=== PATIENT | female | born 1930 | race Caucasian/White ===

== ENCOUNTER 2017-01-13 10:27 | Outpatient (CLI) | payer OTHER ==
--- NOTE | 2017-01-13 12:33 | DIAGNOSTIC IMAGING REPORT ---
PROCEDURE: MR LUMBAR SPINE W/O CONTRAST INDICATION: LT LEG RADICULOPATHY TECHNIQUE: Noncontrast T1, T2, and STIR sagittal images. T1 and T2 axial images. COMPARISON: Lumbar spine MRI 02/05/2016. FINDINGS: Motion artifacts secondary to back pain. Normal alignment without fracture. Multiple Schmorl's nodes of throughout the lumbar spine. Moderate L3-4 and severe L5-S1 disc space narrowing. Multilevel disc degeneration. Normal conus. Paraspinal soft tissues are unremarkable. Left S2 Tarlov cyst. L1-2: Mild broad-based disc bulge. No foraminal or spinal stenosis. L2-3: Minor disc bulge. No foraminal or spinal stenosis. L3-4: Large circumferential disc bulge and mild facet arthropathy with thickening of the ligament flava. There is moderate bilateral of foraminal stenosis with progression on the left. Mild spinal stenosis is unchanged. L4-5: Moderate circumferential disc bulge with mild facet arthropathy and thickening of the ligament flava. There is mild bilateral foraminal stenosis. L5-S1: Small broad-based disc bulge/spur complex. Mild bilateral foraminal stenosis. No spinal stenosis. IMPRESSION: 1. L3-4 large disc bulge and moderate bilateral foraminal stenosis, with progression on the left. Mild spinal stenosis. 2. L4-5 disc bulge with mild bilateral foraminal stenosis 3. L5-S1 small disc bulge with mild bilateral foraminal stenosis
== END 2017-01-13 23:00 ==
LOC: MRI SRH 10:27
DX: M51.26 Other intervertebral disc displacement, lumbar region (principal); M48.06 Spinal stenosis, lumbar region; M51.27 Other intervertebral disc displacement, lumbosacral region; M48.07 Spinal stenosis, lumbosacral region